=== PATIENT | female | born 1945 | race Caucasian/White ===

== ENCOUNTER 2020-11-28 12:25 | Inpatient (IN) | payer MEDICARE, OTHER ==
[~2020-11-28] VITALS: Ht 162.6 cm; Wt 68.0 kg
[2020-11-28 15:18] LABS: HEMOGLOBIN 7.2 gm/dl (12.3-15.3); RED BLOOD COUNT 3.28 M/UL (4.00-5.10); WHITE BLOOD COUNT 5.2 K/UL (4.5-11.0)
[2020-11-28 15:20] LABS: BUN/CREATININE RATIO 26 (0-10)
[2020-11-28] MEDS ORDERED: VITAMIN D21250 MCG PO (16:12)
[2020-11-28] MEDS ORDERED: ZESTRIL/PRINIVI10 MG PO (16:13)
[2020-11-28] MEDS ORDERED: PAXIL20 MG PO (16:14)
[2020-11-28] MEDS ORDERED: DITROPAN 5 MG TA5 MG PO (16:14)
[2020-11-29 05:07] LABS: BUN/CREATININE RATIO 24 (0-10)
[2020-11-29 06:24] LABS: RED BLOOD COUNT 2.7 M/UL (4.00-5.10); WHITE BLOOD COUNT 4.3 K/UL (4.5-11.0)
[2020-11-29 06:29] LABS: HEMOGLOBIN 6.2 gm/dl (12.3-15.3)
[2020-11-30 07:58] LABS: BUN/CREATININE RATIO 22 (0-10)
[2020-11-30 08:04] LABS: HEMOGLOBIN 10.3 gm/dl (12.3-15.3); RED BLOOD COUNT 4.04 M/UL (4.00-5.10)
[2020-12-01 04:48] LABS: HEMOGLOBIN 9.6 gm/dl (12.3-15.3); RED BLOOD COUNT 3.8 M/UL (4.00-5.10)
[2020-12-01 04:57] LABS: WHITE BLOOD COUNT 8.2 K/UL (4.5-11.0)
[2020-12-01 05:09] LABS: BUN/CREATININE RATIO 22 (0-10)
[2020-12-01] MEDS ORDERED: FERROUS SULFAT325 M2 PO (14:18)
[2020-12-02] MEDS ORDERED: PERCOCET 5/325 T1 EA PO (12:58)
[2020-12-02] MEDS ORDERED: ZESTRIL/PRINIVI10 MG PO (12:58)
[2021-04-26] MEDS ORDERED: VITAMIN D21250 MCG PO (09:07)
[2021-04-26] MEDS ORDERED: DITROPAN 5 MG TA5 MG PO (09:08)
[2021-04-26] MEDS ORDERED: LISINOPRIL10 MG PO (09:08)
[2021-04-26] MEDS ORDERED: PAXIL20 MG PO (09:09)
== END 2020-12-02 13:45 | disposition home or self-care (01) | DRG 492 ==
LOC: ER1 12:25 → CDU 14:40 → MED SURG 4 14:40
PROVIDERS: Internal Medicine; Orthopaedic Surgery; Physician Assistant; Physician Assistant Medical; ADMIT Internal Medicine
PROC: 8E0ZXY6 Isolation (ICD-10-PCS; 2020-11-28)
PROC: 30233N1 Transfusion of Nonautologous Red Blood Cells into Peripheral Vein, Percutaneous Approach (ICD-10-PCS; 2020-11-29)
PROC: 0QSG35Z Reposition Right Tibia with External Fixation Device, Percutaneous Approach (ICD-10-PCS; principal; 2020-11-30 09:00)
DX: M80.061A Age-related osteoporosis with current pathological fracture, right lower leg, initial encounter for fracture (principal); U07.1 COVID-19; G82.20 Paraplegia, unspecified; L89.612 Pressure ulcer of right heel, stage 2; F41.9 Anxiety disorder, unspecified; D50.9 Iron deficiency anemia, unspecified; I10 Essential (primary) hypertension; Z99.3 Dependence on wheelchair; Z85.3 Personal history of malignant neoplasm of breast; Z90.49 Acquired absence of other specified parts of digestive tract; Z90.12 Acquired absence of left breast and nipple; Z79.899 Other long term (current) drug therapy; Z80.1 Family history of malignant neoplasm of trachea, bronchus and lung
CPT/HCPCS: 29515; 36415; 36430; 71045; 73590; 73610; 73630; 76000; 80048; 80053; 82728; 83540; 83550; 85025; 85027; 85610; 86850; 86900; 86901; 86920; 93005; 96374; 96375; 96376; 99284; C1713; J0690; J1100; J1170; J2001; J2270; J2405; J2704; J3010; J7120; P9016; U0002

== ENCOUNTER → 2021-04-26 | Day surgery (SDC) | payer MEDICARE, OTHER ==
[~2021-04-26] MED LIST: DITROPAN 5 MG TA5 MG PO; FERROUS SULFAT325 M2 PO; LISINOPRIL10 MG PO; PAXIL20 MG PO; PERCOCET 5/325 T1 EA PO; VITAMIN D21250 MCG PO; ZESTRIL/PRINIVI10 MG PO
[2021-04-26 08:48] LABS: HEMOGLOBIN 11.6 gm/dl (12.3-15.3); RED BLOOD COUNT 4.36 M/UL (4.00-5.10); WHITE BLOOD COUNT 7.3 K/UL (4.5-11.0)
[2021-04-26 09:11] LABS: BUN/CREATININE RATIO 23 (0-10)
== END | disposition home or self-care (01) ==
LOC: OR 07:57 → EDBD 16:00
PROVIDERS: Orthopaedic Surgery
PROC: 0QPGX5Z Removal of External Fixation Device from Right Tibia, External Approach (ICD-10-PCS; 2021-04-26)
PROC: 0QPJX5Z Removal of External Fixation Device from Right Fibula, External Approach (ICD-10-PCS; principal; 2021-04-26 13:50)
DX: S82.301D Unspecified fracture of lower end of right tibia, subsequent encounter for closed fracture with routine healing (principal); I10 Essential (primary) hypertension; G82.20 Paraplegia, unspecified; I73.9 Peripheral vascular disease, unspecified; Z85.3 Personal history of malignant neoplasm of breast; Z90.12 Acquired absence of left breast and nipple; Z79.899 Other long term (current) drug therapy; Z87.81 Personal history of (healed) traumatic fracture; Z46.89 Encounter for fitting and adjustment of other specified devices; X58.XXXD Exposure to other specified factors, subsequent encounter
CPT/HCPCS: 36415; 71045; 80048; 85025; 93005; J0690; J1100; J2001; J2405; J2704; J3010; J7120

== ENCOUNTER 2022-02-07 13:53 | Emergency (ER) | payer MEDICARE, OTHER ==
[2022-02-07] MEDS ORDERED: HYDROCODON-ACE1 EAC4 PO (17:55)
== END 2022-02-07 18:05 | disposition home or self-care (01) ==
LOC: ER1 13:53
DX: S72.401A Unspecified fracture of lower end of right femur, initial encounter for closed fracture (principal); I10 Essential (primary) hypertension; Z85.3 Personal history of malignant neoplasm of breast; W19.XXXA Unspecified fall, initial encounter
CPT/HCPCS: 73502; 73552; 73564; 99283

== ENCOUNTER 2022-03-07 09:51 | Day surgery (SDC) | payer MEDICARE, OTHER ==
[~2022-03-07] VITALS: Ht 132.1 cm; Wt 68.0 kg
[~2022-03-07 09:51] MED LIST changes: +HYDROCODON-ACE1 EAC4 PO
[2022-03-07 10:35] LABS: RED BLOOD COUNT 4.11 M/UL (4.00-5.10); WHITE BLOOD COUNT 6.5 K/UL (4.5-11.0)
[2022-03-07] MEDS ORDERED: NORVASC5 MG PO (10:36)
[2022-03-07 10:48] LABS: BUN/CREATININE RATIO 19 (0-10)
[2022-03-07] MEDS ORDERED: HYDROCODON-ACE1 EAC4 PO (17:27)
== END 2022-03-07 16:00 | disposition home or self-care (01) ==
LOC: OR 09:51
PROVIDERS: Orthopaedic Surgery
DX: S72.401A Unspecified fracture of lower end of right femur, initial encounter for closed fracture (principal); G82.20 Paraplegia, unspecified; I10 Essential (primary) hypertension; D64.9 Anemia, unspecified; F41.9 Anxiety disorder, unspecified; I73.9 Peripheral vascular disease, unspecified; X58.XXXA Exposure to other specified factors, initial encounter; Z20.822 Contact with and (suspected) exposure to COVID-19; Z85.3 Personal history of malignant neoplasm of breast; Z79.899 Other long term (current) drug therapy
CPT/HCPCS: 71045; 73560; 76000; 80048; 85027; 93005; A6212; C1713; J0690; J1100; J2001; J2405; J2704; J7120; U0002

== ENCOUNTER 2022-03-26 11:51 | Inpatient (IN) | payer MEDICARE, OTHER ==
[~2022-03-26] VITALS: Ht 167.6 cm; Wt 68.0 kg
[~2022-03-26 11:51] MED LIST changes: +NORVASC5 MG PO
[2022-03-26 12:35] LABS: HEMOGLOBIN 7.1 gm/dl (12.3-15.3); RED BLOOD COUNT 1.32 M/UL (4.00-5.10); WHITE BLOOD COUNT 6.4 K/UL (4.5-11.0)
[2022-03-26 13:02] LABS: BUN/CREATININE RATIO 25 (0-10)
[2022-03-26] MEDS ORDERED: OXYBUTYNIN CHLOR5 M1 PO (16:06)
[2022-03-26 22:18] LABS: HEMOGLOBIN 7.1 gm/dl (12.3-15.3)
[2022-03-27 04:13] LABS: WHITE BLOOD COUNT 5.1 K/UL (4.5-11.0)
[2022-03-27 04:44] LABS: RED BLOOD COUNT 2.16 M/UL (4.00-5.10)
[2022-03-27 04:46] LABS: HEMOGLOBIN 5.7 gm/dl (12.3-15.3)
[2022-03-27 04:59] LABS: BUN/CREATININE RATIO 22 (0-10)
--- NOTE | 2022-03-27 05:33 | NUR ---
5894 [facility] CALLED WITH A CRITICAL HGB OF 5.7. DR. VILLARREAL NOTIFIED THAT THE PT HAS A PE IN THE RIGHT LOWER LOBE AND IS CURRENTLY ON A HEPARIN DRIP. AND PT HAS HAD A DARK TARRY STOOL. ORDER TO DC HEPARIN DRIP, TRANSFUSE 2 UNITS BLOOD, KEEP NPO AND PROTINIX 40MG IVP Q12H. 1635 [facility] CALLED THAT THE BLOOD IS READY. I WILL DISULFURIZER TENDER AND START THE FIRST UNIT OF BLOOD.
[2022-03-27 17:40] LABS: HEMOGLOBIN 8.6 gm/dl (12.3-15.3)
[2022-03-28 02:57] LABS: HEMOGLOBIN 8.4 gm/dl (12.3-15.3); WHITE BLOOD COUNT 5.5 K/UL (4.5-11.0)
[2022-03-28 03:06] LABS: RED BLOOD COUNT 3.12 M/UL (4.00-5.10)
[2022-03-28 03:51] LABS: BUN/CREATININE RATIO 20 (0-10)
[2022-03-29 06:02] LABS: HEMOGLOBIN 8.5 gm/dl (12.3-15.3); RED BLOOD COUNT 3.14 M/UL (4.00-5.10); WHITE BLOOD COUNT 5.2 K/UL (4.5-11.0)
[2022-03-29 06:16] LABS: BUN/CREATININE RATIO 16 (0-10)
[2022-03-30 04:41] LABS: HEMOGLOBIN 7.8 gm/dl (12.3-15.3); RED BLOOD COUNT 2.86 M/UL (4.00-5.10)
[2022-03-30 04:42] LABS: WHITE BLOOD COUNT 6.9 K/UL (4.5-11.0)
[2022-03-30 05:01] LABS: BUN/CREATININE RATIO 12 (0-10)
[2022-03-30 14:05] LABS: HEMOGLOBIN 8.7 gm/dl (12.3-15.3)
[2022-03-31 02:49] LABS: HEMOGLOBIN 8.3 gm/dl (12.3-15.3); RED BLOOD COUNT 3.11 M/UL (4.00-5.10); WHITE BLOOD COUNT 5.8 K/UL (4.5-11.0)
[2022-03-31 03:04] LABS: BUN/CREATININE RATIO 16 (0-10)
[2022-04-01 03:51] LABS: HEMOGLOBIN 8.3 gm/dl (12.3-15.3); RED BLOOD COUNT 3.12 M/UL (4.00-5.10); WHITE BLOOD COUNT 6.3 K/UL (4.5-11.0)
[2022-04-01 03:56] LABS: BUN/CREATININE RATIO 17 (0-10)
[2022-04-02 04:16] LABS: HEMOGLOBIN 8.3 gm/dl (12.3-15.3); RED BLOOD COUNT 3.16 M/UL (4.00-5.10); WHITE BLOOD COUNT 6.7 K/UL (4.5-11.0)
[2022-04-02 04:23] LABS: BUN/CREATININE RATIO 14 (0-10)
[2022-04-03 03:26] LABS: HEMOGLOBIN 8.4 gm/dl (12.3-15.3); RED BLOOD COUNT 3.14 M/UL (4.00-5.10); WHITE BLOOD COUNT 6.5 K/UL (4.5-11.0)
[2022-04-03 04:04] LABS: BUN/CREATININE RATIO 15 (0-10)
--- NOTE | 2022-04-03 09:00 | NUR ---
PT ASKING FOR HELP IN THE BED , I ASKED HOW SHE GOT IN HER WHEELCHAIR SHE STATED BY HERSELF AND DOES IT AT HOME WELL. SHE IS NOT USING A SLIDE BOARD AND DECLINES A TJ LIFT. SHE IS ADIMANT SHE HAS TO BE LIFTED WEIGHT TO BE PLACED BACK IN THE BED.
--- NOTE | 2022-04-03 18:09 | NUR ---
PT OUT OF BED AGAIN, SHE IS TOTAL NON WEIGHT BEARING HAVE AN EXTERNAL FIXATOR TO HER RIGHT FEMUR. DR ESCALANTE AWARE AND PT AND OT ORDERS ADDED.EDUCATED AGAIN ON SAFETY FOR HER AND STAFF, SHE VERBALIZES UNDERSTANDING BUT STATES IT HAS TO BE DONE HER WAY.
[2022-04-04 04:05] LABS: HEMOGLOBIN 8.6 gm/dl (12.3-15.3); RED BLOOD COUNT 3.23 M/UL (4.00-5.10); WHITE BLOOD COUNT 6.2 K/UL (4.5-11.0)
--- NOTE | 2022-04-04 16:41 | NUR ---
PT UP IN CHAIR AT THE BEDSIDE SHE DENIES NEEDS OR C/O AT THIS TIME.CALL ANTONIO AND PHONE INREACH.
[2022-04-05] MEDS ORDERED: FERROUS GLUCON324 M1 PO (13:59)
[2022-04-05] MEDS ORDERED: WARFARIN SODIUM4 MG PO (13:59)
[2022-04-05] MEDS ORDERED: PROTONIX40 MG PO (13:59)
--- NOTE | 2022-04-05 16:54 | NUR ---
discharge teaching completed including coumadin pt veralized understanding. scripts in hand
== END 2022-04-05 18:15 | disposition home or self-care (01) | DRG 176 ==
LOC: ER1 11:51 → MED SURG 4 15:00 → CDU 15:00 → MED SURG 4 18:20
PROVIDERS: Internal Medicine; Internal Medicine Gastroenterology; Nurse Practitioner; Physician Assistant; ADMIT Internal Medicine
PROC: 30233N1 Transfusion of Nonautologous Red Blood Cells into Peripheral Vein, Percutaneous Approach (ICD-10-PCS; 2022-03-27)
PROC: 0DJ08ZZ Inspection of Upper Intestinal Tract, Via Natural or Artificial Opening Endoscopic (ICD-10-PCS; principal; 2022-03-28 14:30)
PROC: 0DJD8ZZ Inspection of Lower Intestinal Tract, Via Natural or Artificial Opening Endoscopic (ICD-10-PCS; 2022-03-29)
DX: I26.93 Single subsegmental thrombotic pulmonary embolism without acute cor pulmonale (principal); D62 Acute posthemorrhagic anemia; N30.00 Acute cystitis without hematuria; G82.20 Paraplegia, unspecified; J98.11 Atelectasis; B96.89 Other specified bacterial agents as the cause of diseases classified elsewhere; R91.8 Other nonspecific abnormal finding of lung field; I10 Essential (primary) hypertension; E87.6 Hypokalemia; D50.9 Iron deficiency anemia, unspecified; Z20.822 Contact with and (suspected) exposure to COVID-19; J44.9 Chronic obstructive pulmonary disease, unspecified; K64.8 Other hemorrhoids; K44.9 Diaphragmatic hernia without obstruction or gangrene; E27.9 Disorder of adrenal gland, unspecified; Z99.3 Dependence on wheelchair; Z79.899 Other long term (current) drug therapy; Z85.3 Personal history of malignant neoplasm of breast; Z90.12 Acquired absence of left breast and nipple; Z98.890 Other specified postprocedural states; Z90.49 Acquired absence of other specified parts of digestive tract; Z82.49 Family history of ischemic heart disease and other diseases of the circulatory system; Z80.1 Family history of malignant neoplasm of trachea, bronchus and lung; S72.401S Unspecified fracture of lower end of right femur, sequela; Z87.442 Personal history of urinary calculi; Z79.01 Long term (current) use of anticoagulants; Z86.73 Personal history of transient ischemic attack (TIA), and cerebral infarction without residual deficits
CPT/HCPCS: 0240U; 36415; 71045; 80048; 80053; 81001; 82270; 82550; 82553; 82728; 83540; 83550; 83605; 83735; 83880; 84100; 84132; 84484; 85014; 85018; 85025; 85027; 85379; 85610; 85730; 86850; 86900; 86901; 86920; 87040; 87077; 87086; 87186; 93005; 93970; 96374; 96375; 99285; C9113; J0696; J1335; J1644; J1650; J2704; J7040; J7050; P9016; Q9967